=== PATIENT | male | born 1945 | race Caucasian/White ===

== ENCOUNTER 2017-12-28 10:23 | Emergency (ER) | payer MEDICARE ==
[~2017-12-28] VITALS: Ht 172.7 cm; Wt 71.0 kg
[2017-12-28 10:28] VITALS: BP 138/62; PULSE 95; RESP 16; TEMP 98.1; O2SAT 95
[2017-12-28] MEDS ORDERED: TERA2CAP3 PO (10:51)
[2017-12-28] MEDS ORDERED: ASPI-183 PO (10:51)
[2017-12-28] MEDS ORDERED: LISI10TA3 PO (10:51)
[2017-12-28] MEDS ORDERED: PRAV20TA2 PO (10:51)
--- NOTE | 2017-12-28 11:12 | PD ---
HPI Chief Complaint: Cold / Flu Symptoms Time Seen by Provider: 10:57 Travel History International Travel<30 days: No Contact w/Intl Traveler<30days: No Traveled to known affect area: No History of Present Illness HPI This 72-year-old male says he been sick for the past week. She's had a sore throat and cough. He's had intermittent fever. He has not been short of breath. He smokes cigarettes about 10 for day. He has a history of hypertension. He has not had any pain. There is been no vomiting or diarrhea. Says the cough has been quite persistent. He has had a colostomy for 20 years because of colon cancer PFS Past Medical History Cancer: Yes (colon cancer 1996) High Cholesterol: Yes Chemotherapy: Yes Genitourinary: Yes (enlarged prostate) Hypertension: Yes Radiation Therapy: Yes Tetanus Vaccination: < 5 Years Influenza Vaccination: Yes Past Surgical History Abdominal Surgery: Yes (colon resection x 2, with colostomy bag ) Appendectomy: Yes Social History Alcohol Use: Yes (occas beer) Tobacco Use: Yes (1/2 ppd cigs) Substance Use: No Allergies-Medications (Allergen,Severity, Reaction): Coded Allergies: No Known Allergies (Verified Allergy, Unknown, 12/28/17) Reported Meds & Prescriptions Reported Meds & Active Scripts Active Reported Pravastatin 20 Mg Tab 20 Mg PO DAILY Lisinopril 10 Mg Tab 10 Mg PO DAILY Terazosin (Terazosin HCl) 2 Mg Cap 2 Mg PO HS Aspirin 325 Mg Tab 325 Mg PO DAILY Review of Systems Except as stated in HPI: all other systems reviewed are Neg General / Constitutional: Positive: Fever, No: Chills Eyes: No: Diploplia, Blurred Vision HENT: Positive: Sore Throat, No: Headaches Cardiovascular: No: Chest Pain or Discomfort Respiratory: Positive: Cough Gastrointestinal: No: Nausea, Vomiting Genitourinary: No: Frequency, Dysuria Skin: No Rash Neurologic: No: Weakness, Dizziness Hematologic/Lymphatic: No: Easy Bruising Physical Exam Narrative GENERAL: Well-developed male SKIN: Focused skin assessment warm/dry. HEAD: Atraumatic. Normocephalic. EYES: Pupils equal and round. No scleral icterus. No injection or drainage. ENT: No nasal bleeding or discharge. Mucous membranes pink and moist. NECK: Trachea midline. No JVD. CARDIOVASCULAR: Regular rate and rhythm. No murmur appreciated. RESPIRATORY: No accessory muscle use. Clear to auscultation. Breath sounds equal bilaterally. GASTROINTESTINAL: Abdomen soft, non-tender, nondistended. Hepatic and splenic margins not palpable. MUSCULOSKELETAL: No obvious deformities. No clubbing. No cyanosis. No edema. NEUROLOGICAL: Awake and alert. No obvious cranial nerve deficits. Motor grossly within normal limits. Normal speech. PSYCHIATRIC: Appropriate mood and affect; insight and judgment normal. Data Data Last Documented VS Vital Signs Date Time Temp Pulse Resp B/P (MAP) Pulse Ox O2 Delivery O2 Flow Rate FiO2 12/28/17 10:43 16 95 Room Air 12/28/17 10:28 98.1 95 138/62 (87) Orders Orders Chest, Pa & Lat (12/28/17 11:07) [facility] Medical Decision Making Medical Screen Exam Complete: Yes Emergency Medical Condition: Yes Medical Record Reviewed: Yes Differential Diagnosis Differential includes influenza, bronchitis, adverse medication reaction specifically lisinopril Narrative Course Chest x-ray is read as negative. Patient will be treated for bronchitis Diagnosis Primary Impression: Acute bronchitis Scripts Amoxicillin (Amoxicillin) 500 Mg Tab 500 MG PO TID for Infection for 10 Days, TAB 0 Refills Prov: Jayy Edwards MD 12/28/17 Disposition: 01 DISCHARGE HOME Condition: Stable Jayy Edwards MD Dec 28, 2017 11:12
--- NOTE | 2017-12-28 11:49 | RADRPT ---
EXAM DATE/TIME: 12/28/2017 11:24 [facility] COMPARISON: No previous studies available for comparison. INDICATIONS : Short of breath and cough MEDICAL HISTORY : Hypertension. Carcinoma, colon. Smoker SURGICAL HISTORY : Appendectomy. Colon resection. ENCOUNTER: Initial ACUITY: 2 days PAIN SCORE: 2/10 LOCATION: Bilateral chest FINDINGS: PA and lateral views of the chest demonstrate the lungs to be symmetrically aerated without evidence of mass, infiltrate or effusion. The cardiomediastinal contours are unremarkable. Osseous structure s are intact. CONCLUSION: 1. No acute cardiopulmonary disease. Shay Arnett MD on December 28, 2017 at 11:46 Board Certified Radiologist. This report was verified electronically.
[2017-12-28] MEDS ORDERED: AMOX500T PO (12:09)
[2017-12-28 12:20] VITALS: BP 131/70
== END 2017-12-28 12:23 | disposition home or self-care (01) ==
LOC: PHED 10:23
DX: J20.9 Acute bronchitis, unspecified (principal); I10 Essential (primary) hypertension; E78.00 Pure hypercholesterolemia, unspecified; F17.210 Nicotine dependence, cigarettes, uncomplicated; Z85.038 Personal history of other malignant neoplasm of large intestine
CPT/HCPCS: 71046; 99283